=== PATIENT | female | born 1995 | race Caucasian/White ===

== ENCOUNTER 2022-06-28 06:00 | Inpatient (IN) | payer MEDICAID ==
[~2022-06-28 06:00] MED LIST: Acetaminophen 500 MG Tab PO SCH; Amphetamine/Dextroamphetamine Salts 10 MG Tab PO SCH; Celecoxib 200 MG Cap PO SCH; Scopolamine 1.5 MG Transdermal Patch TOP SCH
[2022-06-28] MEDS ORDERED: Dextrose 5%-Lactated Ringers 1,000 ML IV ONE (06:30)
[2022-06-28] MEDS ORDERED: Lactated Ringers 1,000 ML IV SCH (06:30)
[2022-06-28] MEDS ORDERED: fentaNYL 250 MCG/5 ML SDV ONE ×2 (07:10)
[2022-06-28] MEDS ORDERED: Glycopyrrolate 0.2 MG/ML 5 ML MDV ONE (07:10)
[2022-06-28] MEDS ORDERED: Neostigmine Methylsulfate 1 MG/ML 5 ML Syringe ONE (07:10)
[2022-06-28] MEDS ORDERED: Propofol 200 MG/20 ML SDV ONE (07:10)
[2022-06-28] MEDS ORDERED: Rocuronium 50 MG/5 ML Vial ONE ×2 (07:10)
[2022-06-28] MEDS ORDERED: fentaNYL 100 MCG/2 ML SDV ONE (07:10)
[2022-06-28] MEDS ORDERED: Ondansetron 4 MG/2 ML SDV ONE (07:10)
[2022-06-28] MEDS ORDERED: Labetalol 20 MG/4 ML Syringe ONE (07:10)
[2022-06-28] MEDS ORDERED: Succinylcholine 200 MG/10 ML MDV ONE (07:10)
[2022-06-28] MEDS ORDERED: Dexamethasone 4 MG/ML SDV ONE (07:10)
[2022-06-28] MEDS ORDERED: cefOXitin 2 GM Vial ONE (07:10)
[2022-06-28] MEDS ORDERED: Ketamine 18 MG in Sodium Chloride 0.9% 19.82 ML IV SCH (07:15)
[2022-06-28] MEDS ORDERED: Ketamine 500 MG/5 ML MDV IV SCH (07:15)
[2022-06-28] MEDS ORDERED: cefOXitin 2 GM in Sodium Chloride 0.9% 50 ML IV ONE ×3 (07:30→20:35)
[2022-06-28] MEDS ORDERED: cefOXitin 2 GM in Sodium Chloride 0.9% 50 ML IV SCH (07:40)
[2022-06-28] MEDS ORDERED: Lactated Ringers 1,000 ML IV ONE ×2 (09:50→20:30)
[2022-06-28] MEDS ORDERED: Insulin Lispro 100 Unit/ML 3 ML KwikPen SUBCUT SCH (10:00)
[2022-06-28] MEDS ORDERED: hydrOXYzine HCL 100 MG/2 ML SDV IM SCH (10:35)
[2022-06-28] MEDS ORDERED: fentaNYL 50 MCG/ML SDV IVPUSH SCH (10:35)
[2022-06-28] MEDS ORDERED: oxyCODONE 5 MG Tab PO ONE (12:45)
[2022-06-28] MEDS ORDERED: Pantoprazole 40 MG Vial IV ONE (14:00)
[2022-06-28] MEDS ORDERED: MVI, Adult with Vitamin K 10 ML, Thiamine 200 MG, Zinc/Copper/Manganese/Selenium 1 ML i... IV ONE ×4 (14:05)
[2022-06-28] MEDS ORDERED: HYDROmorphone 0.5 MG/0.5 ML Syringe IVPUSH ONE ×2 (15:00→20:15)
[2022-06-28] MEDS ORDERED: Insulin Lispro 100 Unit/ML 3 ML KwikPen SUBCUT ONE (16:00)
[2022-06-28] MEDS ORDERED: Heparin Sodium 5,000 Units/ML Vial SUBCUT ONE (20:30)
[2022-06-28] MEDS ORDERED: traZODone 50 MG Tab PO ONE (20:30)
[2022-06-28] MEDS ORDERED: traMADol 50 MG Tab PO ONE (22:30)
[2022-06-29] MEDS ORDERED: cefOXitin 2 GM in Sodium Chloride 0.9% 50 ML IV ONE (02:05)
[2022-06-29] MEDS ORDERED: Lactated Ringers 1,000 ML IV ONE (03:15)
[2022-06-29] MEDS ORDERED: Iopamidol 612 MG/ML 50 ML SDV PO ONE (03:52)
[2022-06-29] MEDS ORDERED: traMADol 50 MG Tab PO ONE (04:35)
[2022-06-29] MEDS ORDERED: Heparin Sodium 5,000 Units/ML Vial SUBCUT ONE ×2 (08:45→20:00)
[2022-06-29] MEDS ORDERED: Celecoxib 200 MG Cap PO ONE ×2 (08:45→21:00)
[2022-06-29] MEDS ORDERED: oxyCODONE 5 MG Tab PO ONE ×2 (11:45→20:44)
[2022-06-29] MEDS ORDERED: traZODone 50 MG Tab PO ONE (21:00)
[2022-06-30] MEDS ORDERED: Cyanocobalamin (Vitamin B12) 1,000 MCG/ML SDV IM ONE (08:13)
[2022-06-30] MEDS ORDERED: Heparin Sodium 5,000 Units/ML Vial SUBCUT ONE (08:13)
[2022-06-30] MEDS ORDERED: oxyCODONE 5 MG Tab PO ONE (08:13)
[2022-06-30] MEDS ORDERED: Celecoxib 200 MG Cap PO ONE (08:13)
[2022-07-24 23:15] LABS: ESTIMATED GFR 70 mL/min (>60)
[2022-07-24 23:22] LABS: HEMOGLOBIN A1C 10.9 % (4.5-6.2)
== END 2022-06-30 10:50 | disposition home or self-care (01) | DRG 621 ==
LOC: JP.ZCENSUS 06:00
PROVIDERS: ADMIT Surgery; ATTEND Surgery
PROC: 0FB24ZX Excision of Left Lobe Liver, Percutaneous Endoscopic Approach, Diagnostic (ICD-10-PCS; principal; 2022-06-28)
PROC: 0D164ZA Bypass Stomach to Jejunum, Percutaneous Endoscopic Approach (ICD-10-PCS; principal; 2022-06-28)
PROC: 0BQT4ZZ Repair Diaphragm, Percutaneous Endoscopic Approach (ICD-10-PCS; principal; 2022-06-28)
DX: E66.01 Morbid (severe) obesity due to excess calories (principal); F33.41 Major depressive disorder, recurrent, in partial remission; F41.9 Anxiety disorder, unspecified; K44.9 Diaphragmatic hernia without obstruction or gangrene; F90.9 Attention-deficit hyperactivity disorder, unspecified type; R16.0 Hepatomegaly, not elsewhere classified; E11.9 Type 2 diabetes mellitus without complications; Z68.38 Body mass index [BMI] 38.0-38.9, adult; Z90.49 Acquired absence of other specified parts of digestive tract; Z90.89 Acquired absence of other organs; Z98.890 Other specified postprocedural states; Z88.0 Allergy status to penicillin; Z79.4 Long term (current) use of insulin
CPT/HCPCS: 36415; 74240; 74240-26; 80053; 81025; 82728; 82947; 83036; 83735; 84100; 85027; 86850; 86900; 86901; 88307; 88313; 94762; A9270-GY; C9113; J0171; J0330; J0694; J1100; J1170; J1644; J1815; J1815-GY; J2405; J2704; J2710; J2795; J3010; J3410; J3411; J3420; J3490; J7120; J7121; Q9967

== ENCOUNTER 2022-08-16 08:59 | Day surgery (SDC) | payer MEDICAID ==
[~2022-08-16 08:59] MED LIST changes: -Acetaminophen 500 MG Tab PO SCH; -Amphetamine/Dextroamphetamine Salts 10 MG Tab PO SCH; -Celecoxib 200 MG Cap PO SCH; +Midazolam 1 MG/ML 2 ML SDV ONE; +Propofol 200 MG/20 ML SDV ONE; -Scopolamine 1.5 MG Transdermal Patch TOP SCH; +fentaNYL 50 MCG/ML SDV ONE
[2022-08-16] MEDS ORDERED: Lactated Ringers 1,000 ML IV SCH (09:15)
[2022-08-16] MEDS ORDERED: Cyanocobalamin (Vitamin B12) 1,000 MCG/ML SDV IM ONE (09:30)
[2022-08-16] MEDS ORDERED: Dexamethasone 4 MG/ML SDV ONE (09:59)
[2022-08-16] MEDS ORDERED: Glycopyrrolate 0.2 MG/ML 2 ML SDV IVPUSH ONE (10:00)
[2022-08-16] MEDS ORDERED: MVI, Adult with Vitamin K 10 ML, Thiamine 200 MG, Zinc/Copper/Manganese/Selenium 1 ML i... IV ONE ×4 (10:15)
[2022-08-16] MEDS ORDERED: Ondansetron 4 MG/2 ML SDV IVPUSH ONE (11:45)
[2022-08-16] MEDS ORDERED: Scopolamine 1.5 MG Transdermal Patch TOP ONE (12:43)
[2022-08-16] MEDS ORDERED: Hyoscyamine 0.125 MG Tab.SL SL ONE ×2 (13:15→15:18)
[2022-08-16] MEDS ORDERED: Ondansetron 4 MG Tab.DIS PO ONE (15:19)
== END 2022-08-16 15:40 | disposition home or self-care (01) ==
LOC: JP.SDS 08:59
PROVIDERS: ATTEND Surgery
DX: K94.23 Gastrostomy malfunction (principal); E66.9 Obesity, unspecified; E11.9 Type 2 diabetes mellitus without complications; N20.0 Calculus of kidney; F90.9 Attention-deficit hyperactivity disorder, unspecified type; Z68.33 Body mass index [BMI] 33.0-33.9, adult; Z79.899 Other long term (current) drug therapy; Z88.0 Allergy status to penicillin
CPT/HCPCS: 43245; 74176; 76000; 81003; 81025; A9270; C1726; J1100; J2250; J2405; J2704; J3010; J3411; J3420; J3490; J7120; Q0162

== ENCOUNTER 2022-09-23 07:23 | Day surgery (SDC) | payer MEDICAID ==
[~2022-09-23 07:23] MED LIST changes: +fentaNYL 100 MCG/2 ML SDV ONE; -fentaNYL 50 MCG/ML SDV ONE
[2022-09-23] MEDS ORDERED: Lactated Ringers 1,000 ML IV ONE (08:00)
[2022-09-23] MEDS ORDERED: Scopolamine 1.5 MG Transdermal Patch TRDERM ONE (08:07)
[2022-09-23] MEDS ORDERED: Cyanocobalamin (Vitamin B12) 1,000 MCG/ML SDV IM ONE (09:00)
[2022-09-23] MEDS ORDERED: MVI, Adult with Vitamin K 10 ML, Thiamine 200 MG, Zinc/Copper/Manganese/Selenium 1 ML i... IV ONE ×4 (09:00)
[2022-09-23] MEDS ORDERED: Glycopyrrolate 0.2 MG/ML 2 ML SDV IVPUSH ONE (09:15)
[2022-09-23] MEDS ORDERED: Dexamethasone 4 MG/ML SDV ONE (09:39)
== END 2022-09-23 11:18 | disposition home or self-care (01) ==
LOC: JP.SDS 07:23
PROVIDERS: ATTEND Surgery
DX: K94.23 Gastrostomy malfunction (principal); K21.9 Gastro-esophageal reflux disease without esophagitis; E66.9 Obesity, unspecified; E11.9 Type 2 diabetes mellitus without complications; F90.9 Attention-deficit hyperactivity disorder, unspecified type; Z68.29 Body mass index [BMI] 29.0-29.9, adult; Z79.899 Other long term (current) drug therapy; Z88.0 Allergy status to penicillin; Z88.8 Allergy status to other drugs, medicaments and biological substances
CPT/HCPCS: 43249; 81025; A9270; C1726; J1100; J2250; J2704; J3010; J3411; J3420; J3490; J7120

== ENCOUNTER 2022-11-04 07:58 | Day surgery (SDC) | payer MEDICAID ==
[2022-11-04] MEDS ORDERED: Glycopyrrolate 0.2 MG/ML 2 ML SDV IVPUSH ONE (08:00)
[2022-11-04] MEDS ORDERED: Cyanocobalamin (Vitamin B12) 1,000 MCG/ML SDV IM ONE (08:00)
[2022-11-04] MEDS ORDERED: Lactated Ringers 1,000 ML IV ONE (09:00)
[2022-11-04] MEDS ORDERED: Midazolam 1 MG/ML 2 ML SDV ONE (09:08)
[2022-11-04] MEDS ORDERED: Propofol 200 MG/20 ML SDV ONE (09:08)
[2022-11-04] MEDS ORDERED: fentaNYL 50 MCG/ML SDV ONE (09:08)
[2022-11-04] MEDS ORDERED: Ondansetron 4 MG/2 ML SDV ONE (09:59)
[2022-11-04] MEDS ORDERED: Dexamethasone 4 MG/ML SDV ONE (09:59)
[2022-11-04] MEDS ORDERED: MVI, Adult with Vitamin K 10 ML, Thiamine 200 MG, Zinc/Copper/Manganese/Selenium 1 ML i... IV ONE ×4 (10:00)
[2022-11-04] MEDS ORDERED: Ondansetron 4 MG/2 ML SDV IVPUSH PRN (10:32)
[2022-11-04] MEDS ORDERED: Scopolamine 1.5 MG Transdermal Patch TOP ONE (10:32)
[2022-11-04] MEDS ORDERED: Metoclopramide 10 MG/2 ML SDV IVPUSH ONE (12:15)
[2022-11-04] MEDS ORDERED: HYDROmorphone 1 MG/ML Syringe IVPUSH PRN (12:15)
== END 2022-11-04 12:59 | disposition home or self-care (01) ==
LOC: JP.SDS 07:58
PROVIDERS: ATTEND Surgery
DX: K94.23 Gastrostomy malfunction (principal); F41.9 Anxiety disorder, unspecified; F90.9 Attention-deficit hyperactivity disorder, unspecified type; E11.9 Type 2 diabetes mellitus without complications; Z79.899 Other long term (current) drug therapy; Z98.890 Other specified postprocedural states; Z88.0 Allergy status to penicillin; Z88.8 Allergy status to other drugs, medicaments and biological substances
CPT/HCPCS: 81025; A9270-GY; C1726; J1100; J2250; J2405; J2704; J2765; J3010; J3411; J3420; J3490; J7120

== ENCOUNTER 2023-01-05 07:15 | Day surgery (SDC) | payer MEDICAID ==
[2023-01-05] MEDS ORDERED: Glycopyrrolate 0.2 MG/ML 2 ML SDV IVPUSH ONE (08:30)
[2023-01-05] MEDS ORDERED: Lactated Ringers 1,000 ML IV SCH (08:30)
[2023-01-05] MEDS ORDERED: Cyanocobalamin (Vitamin B12) 1,000 MCG/ML SDV IM ONE (08:30)
[2023-01-05] MEDS ORDERED: Scopolamine 1.5 MG Transdermal Patch TRDERM ONE (08:53)
[2023-01-05] MEDS ORDERED: MVI, Adult with Vitamin K 10 ML, Thiamine 200 MG, Chromium/Copper/Mang/Selen/Zn 1 ML in... IV SCH ×4 (09:30)
[2023-01-05] MEDS ORDERED: Midazolam 1 MG/ML 2 ML SDV ONE (09:39)
[2023-01-05] MEDS ORDERED: Propofol 200 MG/20 ML SDV ONE (09:39)
[2023-01-05] MEDS ORDERED: fentaNYL 100 MCG/2 ML SDV ONE (09:39)
[2023-01-05] MEDS ORDERED: Dexamethasone 4 MG/ML SDV ONE (10:42)
== END 2023-01-05 12:25 | disposition home or self-care (01) ==
LOC: JP.SDS 07:15
PROVIDERS: ATTEND Surgery
DX: K94.23 Gastrostomy malfunction (principal); R13.10 Dysphagia, unspecified; F98.8 Other specified behavioral and emotional disorders with onset usually occurring in childhood and adolescence; F41.9 Anxiety disorder, unspecified; F32.A Depression, unspecified; E11.9 Type 2 diabetes mellitus without complications; Z79.899 Other long term (current) drug therapy; Z88.0 Allergy status to penicillin; Z88.8 Allergy status to other drugs, medicaments and biological substances
CPT/HCPCS: 43249; 81025; A9270; C1726; J1100; J2250; J2704; J3010; J3411; J3420; J3490; J7120

== ENCOUNTER 2023-02-17 08:25 | Day surgery (SDC) | payer MEDICAID ==
[2023-02-17] MEDS ORDERED: Cyanocobalamin (Vitamin B12) 1,000 MCG/ML SDV IM ONE (08:30)
[2023-02-17] MEDS ORDERED: Midazolam 1 MG/ML 2 ML SDV ONE (09:22)
[2023-02-17] MEDS ORDERED: fentaNYL 50 MCG/ML SDV ONE (09:22)
[2023-02-17] MEDS ORDERED: Propofol 200 MG/20 ML SDV ONE ×2 (09:22→10:24)
[2023-02-17] MEDS ORDERED: Lactated Ringers 1,000 ML IV SCH (09:30)
[2023-02-17] MEDS: Glycopyrrolate 0.2 MG/ML 2 ML SDV IVPUSH ONE ×2 (10:10→14:29)
[2023-02-17] MEDS ORDERED: Dexamethasone 4 MG/ML SDV ONE (10:23)
[2023-02-17] MEDS ORDERED: droPERidol 5 MG/2 ML SDV ONE (10:27)
[2023-02-17] MEDS ORDERED: Ondansetron 4 MG/2 ML SDV ONE (10:27)
[2023-02-17] MEDS ORDERED: Scopolamine 1.5 MG Transdermal Patch ONE (10:49)
[2023-02-17] MEDS ORDERED: MVI, Adult with Vitamin K 10 ML, Thiamine 200 MG, Zinc/Copper/Manganese/Selenium 1 ML i... IV ONE ×4 (11:30)
[2023-02-17] MEDS ORDERED: hydrOXYzine HCl 50 MG/ML SDV IM ONE (11:30)
[2023-02-17] MEDS ORDERED: fentaNYL 50 MCG/ML SDV IVPUSH ONE (11:30)
[2023-02-17] MEDS ORDERED: Ondansetron 4 MG/2 ML SDV IVPUSH ONE (11:30)
[2023-02-17] MEDS ORDERED: Metoclopramide 10 MG/2 ML SDV IVPUSH ONE (11:45)
[2023-02-17] MEDS ORDERED: diphenhydrAMINE 25 MG Cap PO PRN (12:22)
[2023-02-17] MEDS ORDERED: diphenhydrAMINE 50 MG/ML SDV IVPUSH PRN (12:22)
[2023-02-17] MEDS ORDERED: Naloxone 0.4 MG/ML SDV IVPUSH PRN (12:22)
[2023-02-17] MEDS ORDERED: Ondansetron 4 MG/2 ML SDV IVPUSH PRN (12:22)
[2023-02-17] MEDS ORDERED: LORazepam 2 MG/ML SDV IVPUSH PRN (12:33)
[2023-02-17] MEDS ORDERED: Cyclobenzaprine 10 MG Tab PO PRN (12:34)
[2023-02-17] MEDS ORDERED: oxyCODONE 5 MG Tab PO PRN (12:36)
[2023-02-17] MEDS: HYDROmorphone/Normal Saline 6 MG/30 ML PCA Vial IV PRN (12:40)
[2023-02-17] MEDS: Pantoprazole 40 MG Vial IV SCH (14:16)
[2023-02-17] MEDS: SCOPOLAMINE PATCH CHECK TOP SCH (14:29)
[2023-02-17] MEDS: Dextrose 5%-Lactated Ringers 1,000 ML IV SCH (16:20)
[2023-02-17] MEDS: Meropenem 500 MG in Sodium Chloride 0.9% 50 ML IV SCH ×3 (16:22→20:14)
[2023-02-17] MEDS: Ondansetron 4 MG/2 ML SDV IVPUSH SCH ×3 (16:45→23:48)
[2023-02-17] MEDS: Metoclopramide 10 MG/2 ML SDV IVPUSH SCH ×2 (18:06→23:48)
[2023-02-17] MEDS: diphenhydrAMINE 50 MG/ML SDV IVPUSH PRN (21:00)
[2023-02-17] MEDS: traZODone 50 MG Tab PO SCH (22:03)
[2023-02-18] MEDS: Meropenem 500 MG in Sodium Chloride 0.9% 50 ML IV SCH ×3 (02:06→15:48)
[2023-02-18] MEDS: HYDROmorphone/Normal Saline 6 MG/30 ML PCA Vial IV PRN (03:38)
[2023-02-18] MEDS: Ondansetron 4 MG/2 ML SDV IVPUSH SCH ×2 (03:39→08:08)
[2023-02-18] MEDS: Dextrose 5%-Lactated Ringers 1,000 ML IV SCH (03:40)
[2023-02-18 04:58] LABS: BASOPHILS ABSOLUTE AUTO 0.03 K/uL (0.00-0.10); BASOPHILS PERCENT AUTO 0.3 % (0.1-1.3); EOSINOPHILS PERCENT AUTO 0.1 % (0.0-5.4); HEMATOCRIT 28.7 % (34.3-46.0); HEMOGLOBIN 8.8 g/dL (11.2-15.5); IMMATURE GRAN ABSOLUTE AUTO 0.05 K/uL (0.00-0.23); IMMATURE GRAN PERCENT AUTO 0.5 % (0.0-0.7); LYMPHOCYTES ABSOLUTE AUTO 2.05 K/uL (0.8-3.3); LYMPHOCYTES PERCENT AUTO 18.5 % (11.4-47.7); MEAN CORPUSCULAR HEMOGLOBIN 22.9 pg (31.6-35.5); MEAN CORPUSCULAR HGB CONC 30.7 g/dL (31.6-35.5); MEAN CORPUSCULAR VOLUME 74.7 fL (81.4-99.0); MONOCYTES ABSOLUTE AUTO 1.11 K/uL (0.20-0.90); NEUTROPHILS ABSOLUTE AUTO 7.86 K/uL (1.0-7.6); NEUTROPHILS PERCENT AUTO 70.6 % (40.0-78.1); PLATELET COUNT,PLT 379 K/uL (130-375); RED BLOOD CELL COUNT 3.84 M/uL (3.77-5.24); WHITE BLOOD CELL COUNT,WBC 11.1 K/uL (3.2-11.0)
[2023-02-18 05:08] LABS: EOSINOPHILS ABSOLUTE AUTO 0.01 K/uL (0.00-0.40)
[2023-02-18 05:39] LABS: A/G RATIO 0.8 (1.2-2.2); ALANINE AMINOTRANSFERASE,ALT 24 U/L (12-78); ALBUMIN 2.8 g/dL (3.4-5.0); ALKALINE PHOSPHATASE 57 U/L (46-116); BILIRUBIN TOTAL 0.4 mg/dL (0.2-1.0); BLOOD UREA NITROGEN,BUN 7 mg/dL (7-18); CALCIUM 8.4 mg/dL (8.5-10.1); CARBON DIOXIDE,CO2 29 mmol/L (21-32); CHLORIDE,CL 103 mmol/L (100-108); CREATININE 0.9 mg/dL (0.6-1.0); EST CRCL DRUG DOSING (CG) 86.34 mL/min; ESTIMATED GFR 89 mL/min (>60); FERRITIN 6 ng/ml (8-388); GLUCOSE RANDOM 110 mg/dL (74-106); MAGNESIUM 1.8 mg/dL (1.8-2.4); PHOSPHORUS 3.5 mg/dL (2.5-4.9); POTASSIUM,K 3.8 mmol/L (3.6-5.2); PROTEIN TOTAL,TP 6.3 g/dL (6.4-8.2); SODIUM,NA 138 mmol/L (140-148)
[2023-02-18 05:40] LABS: ANION GAP 9.8 mmol/L (5.0-14.0)
[2023-02-18 05:41] LABS: ASPARTATE AMNIOTRANSFERASE,AST 39 U/L (15-37)
[2023-02-18] MEDS: Metoclopramide 10 MG/2 ML SDV IVPUSH SCH (05:58)
[2023-02-18] MEDS: Amphetamine/Dextroamphetamine Salts 10 MG Cap.ER PO SCH (08:05)
[2023-02-18] MEDS: SCOPOLAMINE PATCH CHECK TOP SCH (08:09)
[2023-02-18] MEDS: Tamsulosin 0.4 MG Cap.ER PO SCH (08:09)
[2023-02-18] MEDS: diphenhydrAMINE 50 MG/ML SDV IVPUSH PRN ×2 (08:18→15:54)
[2023-02-18] MEDS ORDERED: LORazepam 1 MG Tab PO PRN (09:32)
[2023-02-18] MEDS: HYDROmorphone 2 MG Tab PO PRN ×4 (10:22→22:21)
[2023-02-18] MEDS: Sodium Ferric Gluconate Cmplex 250 MG in Sodium Chloride 0.9% 100 ML IV SCH (10:49)
[2023-02-18] MEDS: Metoclopramide 10 MG Tab PO SCH ×3 (10:49→22:20)
[2023-02-18] MEDS: Amphetamine/Dextroamphetamine Salts 10 MG Tab PO SCH (11:58)
[2023-02-18] MEDS: Pantoprazole 40 MG Vial IV SCH (13:09)
[2023-02-18] MEDS: Ondansetron 4 MG Tab.DIS PO PRN (20:29)
[2023-02-18] MEDS: traZODone 50 MG Tab PO SCH (20:29)
[2023-02-18] MEDS: diphenhydrAMINE 25 MG Cap PO PRN (22:21)
[2023-02-19] MEDS: HYDROmorphone 2 MG Tab PO PRN ×3 (02:08→10:09)
[2023-02-19] MEDS: Ondansetron 4 MG Tab.DIS PO PRN (02:11)
[2023-02-19] MEDS: Metoclopramide 10 MG Tab PO SCH ×2 (03:58→10:01)
[2023-02-19 04:32] LABS: BASOPHILS ABSOLUTE AUTO 0.04 K/uL (0.00-0.10); BASOPHILS PERCENT AUTO 0.5 % (0.1-1.3); EOSINOPHILS PERCENT AUTO 0.2 % (0.0-5.4); HEMATOCRIT 29.7 % (34.3-46.0); HEMOGLOBIN 8.9 g/dL (11.2-15.5); IMMATURE GRAN ABSOLUTE AUTO 0.03 K/uL (0.00-0.23); IMMATURE GRAN PERCENT AUTO 0.3 % (0.0-0.7); LYMPHOCYTES ABSOLUTE AUTO 1.92 K/uL (0.8-3.3); LYMPHOCYTES PERCENT AUTO 21.6 % (11.4-47.7); MEAN CORPUSCULAR HEMOGLOBIN 22.4 pg (31.6-35.5); MEAN CORPUSCULAR VOLUME 74.8 fL (81.4-99.0); MONOCYTES ABSOLUTE AUTO 1.19 K/uL (0.20-0.90); MONOCYTES PERCENT AUTO 13.4 % (3.3-12.6); NEUTROPHILS ABSOLUTE AUTO 5.68 K/uL (1.0-7.6); PLATELET COUNT,PLT 324 K/uL (130-375); RED BLOOD CELL COUNT 3.97 M/uL (3.77-5.24); WHITE BLOOD CELL COUNT,WBC 8.9 K/uL (3.2-11.0)
[2023-02-19 05:00] LABS: A/G RATIO 0.9 (1.2-2.2); ALANINE AMINOTRANSFERASE,ALT 19 U/L (12-78); ALKALINE PHOSPHATASE 63 U/L (46-116); ASPARTATE AMNIOTRANSFERASE,AST 15 U/L (15-37); BILIRUBIN TOTAL 0.3 mg/dL (0.2-1.0); BLOOD UREA NITROGEN,BUN 6 mg/dL (7-18); CALCIUM 8.6 mg/dL (8.5-10.1); CARBON DIOXIDE,CO2 31 mmol/L (21-32); CHLORIDE,CL 103 mmol/L (100-108); CREATININE 0.9 mg/dL (0.6-1.0); EST CRCL DRUG DOSING (CG) 86.34 mL/min; ESTIMATED GFR 89 mL/min (>60); GLUCOSE RANDOM 80 mg/dL (74-106); MAGNESIUM 1.9 mg/dL (1.8-2.4); POTASSIUM,K 3.3 mmol/L (3.6-5.2); PROTEIN TOTAL,TP 6.3 g/dL (6.4-8.2); SODIUM,NA 139 mmol/L (140-148)
[2023-02-19 05:19] LABS: EOSINOPHILS ABSOLUTE AUTO 0.02 K/uL (0.00-0.40)
[2023-02-19 05:20] LABS: ANION GAP 8.3 mmol/L (5.0-14.0)
[2023-02-19] MEDS: Amphetamine/Dextroamphetamine Salts 10 MG Cap.ER PO SCH (09:43)
[2023-02-19] MEDS: Tamsulosin 0.4 MG Cap.ER PO SCH (09:52)
[2023-02-19] MEDS: Sodium Ferric Gluconate Cmplex 250 MG in Sodium Chloride 0.9% 100 ML IV SCH (10:01)
[2023-02-19] MEDS: diphenhydrAMINE 25 MG Cap PO PRN (10:09)
[2023-02-19] MEDS: SCOPOLAMINE PATCH CHECK TOP SCH (10:11)
[2023-02-19] MEDS: Amphetamine/Dextroamphetamine Salts 10 MG Tab PO SCH (12:20)
== END 2023-02-19 14:45 ==
LOC: JP.SDS 08:25 → JP.2SS 12:28 → JP.SDS 02-19 14:45
PROVIDERS: ATTEND Surgery
DX: K94.23 Gastrostomy malfunction (principal); R13.10 Dysphagia, unspecified; E11.9 Type 2 diabetes mellitus without complications; E61.1 Iron deficiency; E66.9 Obesity, unspecified; F41.9 Anxiety disorder, unspecified; F98.8 Other specified behavioral and emotional disorders with onset usually occurring in childhood and adolescence; F33.41 Major depressive disorder, recurrent, in partial remission; Z68.24 Body mass index [BMI] 24.0-24.9, adult; Z79.899 Other long term (current) drug therapy; Z95.1 Presence of aortocoronary bypass graft; Z98.84 Bariatric surgery status; Z88.0 Allergy status to penicillin; Z88.8 Allergy status to other drugs, medicaments and biological substances
CPT/HCPCS: 36415; 43266; 80053; 81025; 82728; 83735; 84100; 85025; 86850; 86900; 86901; 86920; 86922; 87635; A9270; C1726; C1874; C9113; J1100; J1170; J1200; J1790; J2060; J2185; J2250; J2405; J2704; J2765; J2916; J3010; J3410; J3411; J3420; J3490; J7120; J7121; Q0162; U0002

== ENCOUNTER 2023-03-24 06:56 | Inpatient (IN) | payer MEDICAID ==
[~2023-03-24 06:56] MED LIST changes: -Midazolam 1 MG/ML 2 ML SDV ONE; -Propofol 200 MG/20 ML SDV ONE
[2023-03-24 07:13] LABS: HEMATOCRIT 38.1 % (34.3-46.0); HEMOGLOBIN 11.8 g/dL (11.2-15.5); MEAN CORPUSCULAR HEMOGLOBIN 23.9 pg (31.6-35.5); MEAN CORPUSCULAR VOLUME 77.1 fL (81.4-99.0); RED BLOOD CELL COUNT 4.94 M/uL (3.77-5.24); WHITE BLOOD CELL COUNT,WBC 8.1 K/uL (3.2-11.0)
[2023-03-24 07:44] LABS: A/G RATIO 0.8 (1.2-2.2); ALANINE AMINOTRANSFERASE,ALT 25 U/L (12-78); ALBUMIN 3.1 g/dL (3.4-5.0); ALKALINE PHOSPHATASE 77 U/L (46-116); ASPARTATE AMNIOTRANSFERASE,AST 24 U/L (15-37); BILIRUBIN TOTAL 0.4 mg/dL (0.2-1.0); BLOOD UREA NITROGEN,BUN 10 mg/dL (7-18); CALCIUM 8.7 mg/dL (8.5-10.1); CARBON DIOXIDE,CO2 28 mmol/L (21-32); CHLORIDE,CL 105 mmol/L (100-108); CREATININE 0.8 mg/dL (0.6-1.0); EST CRCL DRUG DOSING (CG) 97.13 mL/min; ESTIMATED GFR 102 mL/min (>60); FERRITIN 36 ng/ml (8-388); GLUCOSE RANDOM 86 mg/dL (74-106); PHOSPHORUS 3.3 mg/dL (2.5-4.9); POTASSIUM,K 3.2 mmol/L (3.6-5.2); PROTEIN TOTAL,TP 6.9 g/dL (6.4-8.2); SODIUM,NA 141 mmol/L (140-148)
[2023-03-24] MEDS ORDERED: Dextrose 5%-Lactated Ringers 1,000 ML IV SCH (07:45)
[2023-03-24 07:47] LABS: ANION GAP 11.2 mmol/L (5.0-14.0)
[2023-03-24] MEDS ORDERED: Glycopyrrolate 0.2 MG/ML 2 ML SDV IVPUSH ONE (08:45)
[2023-03-24] MEDS ORDERED: fentaNYL 100 MCG/2 ML SDV ONE ×2 (09:23→10:30)
[2023-03-24] MEDS ORDERED: Labetalol 20 MG/4 ML Syringe ONE (09:37)
[2023-03-24] MEDS ORDERED: Sodium Chloride 0.9% 10 ML ONE ×2 (09:40→10:05)
[2023-03-24] MEDS ORDERED: Ondansetron 4 MG/2 ML SDV IVPUSH PRN ×2 (10:28→14:30)
[2023-03-24] MEDS ORDERED: diphenhydrAMINE 50 MG/ML SDV IVPUSH PRN (10:28)
[2023-03-24] MEDS ORDERED: diphenhydrAMINE 25 MG Cap PO PRN (10:28)
[2023-03-24] MEDS ORDERED: Naloxone 0.4 MG/ML SDV IVPUSH PRN (10:28)
[2023-03-24] MEDS ORDERED: Ropivacaine 32 ML, dexAMETHasone 8 MG, EPINEPHrine 0.4 MG, Sodium Chloride 0.9% 45.6 ML NERVRT SCH ×4 (10:30)
[2023-03-24] MEDS ORDERED: Ketamine 17 MG in Sodium Chloride 0.9% 19.83 ML IV SCH (10:30)
[2023-03-24] MEDS ORDERED: Midazolam 1 MG/ML 2 ML SDV ONE (10:30)
[2023-03-24] MEDS ORDERED: Ketamine 500 MG/5 ML MDV IV SCH (10:30)
[2023-03-24] MEDS ORDERED: Propofol 200 MG/20 ML SDV ONE (10:30)
[2023-03-24] MEDS ORDERED: Lidocaine 1% with EPINEPHrine 1:100,000 20 ML MDV INJECT ONE (10:35)
[2023-03-24] MEDS ORDERED: Linezolid 600 MG/300 ML Premix Bag IRR ONE (10:35)
[2023-03-24] MEDS ORDERED: Linezolid 600 MG/300 ML Premix Bag IV ONE (10:35)
[2023-03-24] MEDS ORDERED: Bupivacaine 0.5% 50 ML MDV INJECT ONE (10:35)
[2023-03-24] MEDS ORDERED: Meropenem 500 MG SDV IRR ONE (10:36)
[2023-03-24] MEDS ORDERED: Naloxone 0.4 MG/ML SDV IV PRN (11:00)
[2023-03-24] MEDS: HYDROmorphone/Normal Saline 6 MG/30 ML PCA Vial IV PRN ×2 (11:10→16:41)
[2023-03-24] MEDS ORDERED: Rocuronium 50 MG/5 ML Vial ONE (11:11)
[2023-03-24] MEDS ORDERED: Sugammadex Sodium 200 MG/2 ML VIAL ONE (11:49)
[2023-03-24] MEDS ORDERED: Scopolamine 1.5 MG Transdermal Patch ONE (11:59)
[2023-03-24] MEDS ORDERED: hydrOXYzine HCL 100 MG/2 ML SDV IM ONE (12:26)
[2023-03-24] MEDS ORDERED: Albuterol/Ipratropium 3.0-0.5 MG/3 ML Neb Soln INH PRN (14:21)
[2023-03-24] MEDS ORDERED: hydrOXYzine HCL 100 MG/2 ML SDV IM PRN (14:30)
[2023-03-24] MEDS ORDERED: Metoclopramide 10 MG/2 ML SDV IVPUSH PRN (14:30)
[2023-03-24] MEDS ORDERED: Benzocaine/Cetylpyridinium/Menthol Lozenge MUCMEM PRN (14:30)
[2023-03-24] MEDS ORDERED: Labetalol 20 MG/4 ML Syringe IVPUSH PRN (14:30)
[2023-03-24] MEDS ORDERED: Acetaminophen 500 MG Tab PO PRN (14:30)
[2023-03-24] MEDS ORDERED: LORazepam 1 MG Tab PO PRN (14:31)
[2023-03-24] MEDS: Pantoprazole 40 MG Vial IVPUSH SCH (15:27)
[2023-03-24] MEDS: Meropenem 500 MG in Sodium Chloride 0.9% 100 ML IV SCH ×3 (15:41→22:37)
[2023-03-24] MEDS ORDERED: MVI, Adult with Vitamin K 10 ML, Thiamine 200 MG, Zinc/Copper/Manganese/Selenium 1 ML i... IV SCH ×4 (16:00)
[2023-03-24] MEDS: Acetaminophen 500 MG Tab PO SCH (17:26)
[2023-03-24] MEDS: Heparin Sodium 5,000 Units/ML Vial SUBCUT SCH (21:30)
[2023-03-24] MEDS: traZODone 50 MG Tab PO SCH (21:32)
[2023-03-24] MEDS: hydrOXYzine HCL 100 MG/2 ML SDV IM PRN (22:29)
[2023-03-24] MEDS: Dextrose 5%-Lactated Ringers 1,000 ML IV SCH (22:38)
[2023-03-25] MEDS: Acetaminophen 500 MG Tab PO SCH ×3 (02:54→18:12)
[2023-03-25] MEDS ORDERED: Iopamidol 612 MG/ML 30 ML SDV PO STA (03:42)
[2023-03-25] MEDS: HYDROmorphone/Normal Saline 6 MG/30 ML PCA Vial IV PRN ×3 (03:45→21:20)
[2023-03-25] MEDS: diphenhydrAMINE 50 MG/ML SDV IVPUSH PRN ×2 (04:33→21:31)
[2023-03-25 04:34] LABS: BASOPHILS PERCENT AUTO 0.1 % (0.1-1.3); HEMATOCRIT 39.2 % (34.3-46.0); IMMATURE GRAN ABSOLUTE AUTO 0.08 K/uL (0.00-0.23); IMMATURE GRAN PERCENT AUTO 0.4 % (0.0-0.7); LYMPHOCYTES ABSOLUTE AUTO 0.85 K/uL (0.8-3.3); LYMPHOCYTES PERCENT AUTO 4.4 % (11.4-47.7); MEAN CORPUSCULAR HEMOGLOBIN 23.7 pg (31.6-35.5); MEAN CORPUSCULAR HGB CONC 30.6 g/dL (31.6-35.5); MEAN CORPUSCULAR VOLUME 77.3 fL (81.4-99.0); MONOCYTES ABSOLUTE AUTO 1.28 K/uL (0.20-0.90); MONOCYTES PERCENT AUTO 6.6 % (3.3-12.6); NEUTROPHILS ABSOLUTE AUTO 17.13 K/uL (1.0-7.6); NEUTROPHILS PERCENT AUTO 88.5 % (40.0-78.1); PLATELET COUNT,PLT 355 K/uL (130-375); RED BLOOD CELL COUNT 5.07 M/uL (3.77-5.24); WHITE BLOOD CELL COUNT,WBC 19.4 K/uL (3.2-11.0)
[2023-03-25] MEDS: Meropenem 500 MG in Sodium Chloride 0.9% 100 ML IV SCH ×5 (04:40→21:08)
[2023-03-25 04:58] LABS: BASOPHILS ABSOLUTE AUTO 0.02 K/uL (0.00-0.10)
[2023-03-25 05:18] LABS: A/G RATIO 0.7 (1.2-2.2); ALANINE AMINOTRANSFERASE,ALT 28 U/L (12-78); ALBUMIN 2.7 g/dL (3.4-5.0); ALKALINE PHOSPHATASE 61 U/L (46-116); ASPARTATE AMNIOTRANSFERASE,AST 63 U/L (15-37); BILIRUBIN TOTAL 0.4 mg/dL (0.2-1.0); BLOOD UREA NITROGEN,BUN 9 mg/dL (7-18); CALCIUM 8.3 mg/dL (8.5-10.1); CARBON DIOXIDE,CO2 28 mmol/L (21-32); CHLORIDE,CL 104 mmol/L (100-108); CREATININE 0.8 mg/dL (0.6-1.0); EST CRCL DRUG DOSING (CG) 97.13 mL/min; ESTIMATED GFR 102 mL/min (>60); GLUCOSE RANDOM 149 mg/dL (74-106); MAGNESIUM 1.7 mg/dL (1.8-2.4); PHOSPHORUS 2.7 mg/dL (2.5-4.9); PRO B-TYPE NATRIUR PEPT,BNPPRO 83 pg/mL (5-125); PROTEIN TOTAL,TP 6.5 g/dL (6.4-8.2); SODIUM,NA 137 mmol/L (140-148)
[2023-03-25 05:24] LABS: ANION GAP 8.5 mmol/L (5.0-14.0); POTASSIUM,K 3.5 mmol/L (3.6-5.2)
[2023-03-25] MEDS: Dextrose 5%-Lactated Ringers 1,000 ML IV SCH (05:30)
[2023-03-25] MEDS: Amphetamine/Dextroamphetamine Salts 10 MG Cap.ER PO SCH (08:09)
[2023-03-25] MEDS: Heparin Sodium 5,000 Units/ML Vial SUBCUT SCH ×2 (08:11→20:42)
[2023-03-25] MEDS: hydrOXYzine HCL 100 MG/2 ML SDV IM PRN (08:18)
[2023-03-25] MEDS: Magnesium Sulfate/Water 2 GM in Premix Bag 1 BAG IV SCH ×3 (08:32→21:30)
[2023-03-25] MEDS: Celecoxib 200 MG Cap PO SCH ×2 (09:49→20:41)
[2023-03-25] MEDS: SCOPOLAMINE PATCH CHECK TOP SCH (09:50)
[2023-03-25] MEDS: Potassium Phos in 0.9 % NaCl 15 MMOL in Premix Bag 1 BAG IV SCH ×8 (11:12→20:45)
[2023-03-25] MEDS: Amphetamine/Dextroamphetamine Salts 10 MG Tab PO SCH (11:46)
[2023-03-25] MEDS ORDERED: MVI, Adult with Vitamin K 10 ML, Thiamine 200 MG, Zinc/Copper/Manganese/Selenium 1 ML i... IV SCH ×4 (16:00)
[2023-03-25] MEDS: Pantoprazole 40 MG Vial IVPUSH SCH (16:43)
[2023-03-25] MEDS: traZODone 50 MG Tab PO SCH (20:41)
[2023-03-26] MEDS: Magnesium Sulfate/Water 2 GM in Premix Bag 1 BAG IV SCH ×4 (02:11→19:32)
[2023-03-26] MEDS: Acetaminophen 500 MG Tab PO SCH ×3 (02:11→17:04)
[2023-03-26 04:08] LABS: BASOPHILS ABSOLUTE AUTO 0.04 K/uL (0.00-0.10); BASOPHILS PERCENT AUTO 0.3 % (0.1-1.3); EOSINOPHILS ABSOLUTE AUTO 0.07 K/uL (0.00-0.40); EOSINOPHILS PERCENT AUTO 0.5 % (0.0-5.4); HEMATOCRIT 32.7 % (34.3-46.0); HEMOGLOBIN 10.1 g/dL (11.2-15.5); IMMATURE GRAN ABSOLUTE AUTO 0.04 K/uL (0.00-0.23); IMMATURE GRAN PERCENT AUTO 0.3 % (0.0-0.7); LYMPHOCYTES ABSOLUTE AUTO 1.09 K/uL (0.8-3.3); LYMPHOCYTES PERCENT AUTO 8.6 % (11.4-47.7); MEAN CORPUSCULAR HEMOGLOBIN 23.9 pg (31.6-35.5); MEAN CORPUSCULAR HGB CONC 30.9 g/dL (31.6-35.5); MEAN CORPUSCULAR VOLUME 77.3 fL (81.4-99.0); MONOCYTES ABSOLUTE AUTO 0.83 K/uL (0.20-0.90); MONOCYTES PERCENT AUTO 6.5 % (3.3-12.6); NEUTROPHILS ABSOLUTE AUTO 10.67 K/uL (1.0-7.6); NEUTROPHILS PERCENT AUTO 83.8 % (40.0-78.1); PLATELET COUNT,PLT 271 K/uL (130-375); RED BLOOD CELL COUNT 4.23 M/uL (3.77-5.24); WHITE BLOOD CELL COUNT,WBC 12.7 K/uL (3.2-11.0)
[2023-03-26] MEDS: Meropenem 500 MG in Sodium Chloride 0.9% 100 ML IV SCH ×4 (04:15→21:38)
[2023-03-26 04:34] LABS: A/G RATIO 0.7 (1.2-2.2); ALANINE AMINOTRANSFERASE,ALT 24 U/L (12-78); ALBUMIN 2.5 g/dL (3.4-5.0); ALKALINE PHOSPHATASE 63 U/L (46-116); ASPARTATE AMNIOTRANSFERASE,AST 35 U/L (15-37); BILIRUBIN TOTAL 0.3 mg/dL (0.2-1.0); BLOOD UREA NITROGEN,BUN 8 mg/dL (7-18); CALCIUM 8.4 mg/dL (8.5-10.1); CARBON DIOXIDE,CO2 27 mmol/L (21-32); CHLORIDE,CL 106 mmol/L (100-108); CREATININE 0.8 mg/dL (0.6-1.0); EST CRCL DRUG DOSING (CG) 97.13 mL/min; ESTIMATED GFR 102 mL/min (>60); GLUCOSE RANDOM 108 mg/dL (74-106); PHOSPHORUS 4.9 mg/dL (2.5-4.9); POTASSIUM,K 4.2 mmol/L (3.6-5.2); PROTEIN TOTAL,TP 5.9 g/dL (6.4-8.2); SODIUM,NA 137 mmol/L (140-148)
[2023-03-26 05:12] LABS: ANION GAP 8.2 mmol/L (5.0-14.0)
[2023-03-26] MEDS: Meropenem 500 MG SDV ONE ×2 (06:51→07:50)
[2023-03-26] MEDS ORDERED: Bupivacaine 0.5% 50 ML MDV INJECT ONE ×2 (06:52→07:45)
[2023-03-26] MEDS ORDERED: Lidocaine 1% with EPINEPHrine 1:100,000 50 ML MDV INJECT ONE ×2 (06:55→07:45)
[2023-03-26] MEDS ORDERED: Propofol 200 MG/20 ML SDV ONE ×2 (07:05→07:37)
[2023-03-26] MEDS ORDERED: Ropivacaine 32 ML, dexAMETHasone 8 MG, EPINEPHrine 0.4 MG, Sodium Chloride 0.9% 45.6 ML NERVRT SCH ×4 (07:30)
[2023-03-26] MEDS ORDERED: fentaNYL 50 MCG/ML SDV ONE (07:37)
[2023-03-26] MEDS: HYDROmorphone/Normal Saline 6 MG/30 ML PCA Vial IV PRN ×3 (08:33→20:03)
[2023-03-26] MEDS: Celecoxib 200 MG Cap PO SCH ×2 (08:54→21:38)
[2023-03-26] MEDS: Heparin Sodium 5,000 Units/ML Vial SUBCUT SCH ×2 (08:54→21:37)
[2023-03-26] MEDS: Dextrose 5%-Lactated Ringers 1,000 ML IV SCH ×2 (08:59→21:51)
[2023-03-26] MEDS: SCOPOLAMINE PATCH CHECK TOP SCH (09:00)
[2023-03-26] MEDS ORDERED: Cyanocobalamin (Vitamin B12) 1,000 MCG/ML SDV IM ONE (09:00)
[2023-03-26] MEDS: Amphetamine/Dextroamphetamine Salts 10 MG Cap.ER PO SCH (09:00)
[2023-03-26] MEDS: Amphetamine/Dextroamphetamine Salts 10 MG Tab PO SCH (11:39)
[2023-03-26] MEDS: Pantoprazole 40 MG Tab.CR PO SCH (16:50)
[2023-03-26] MEDS: traZODone 50 MG Tab PO SCH (21:38)
[2023-03-26] MEDS: diphenhydrAMINE 50 MG/ML SDV IVPUSH PRN (21:51)
[2023-03-27] MEDS: Magnesium Sulfate/Water 2 GM in Premix Bag 1 BAG IV SCH (01:51)
[2023-03-27] MEDS: Acetaminophen 500 MG Tab PO SCH ×3 (01:58→17:33)
[2023-03-27] MEDS: Cyclobenzaprine 10 MG Tab PO PRN ×2 (01:58→21:59)
[2023-03-27] MEDS: Meropenem 500 MG in Sodium Chloride 0.9% 100 ML IV SCH ×4 (03:51→23:40)
[2023-03-27] MEDS: HYDROmorphone/Normal Saline 6 MG/30 ML PCA Vial IV PRN (04:30)
[2023-03-27 04:46] LABS: BASOPHILS PERCENT AUTO 0.1 % (0.1-1.3); EOSINOPHILS ABSOLUTE AUTO 0.04 K/uL (0.00-0.40); EOSINOPHILS PERCENT AUTO 0.4 % (0.0-5.4); HEMATOCRIT 32.2 % (34.3-46.0); HEMOGLOBIN 9.8 g/dL (11.2-15.5); IMMATURE GRAN ABSOLUTE AUTO 0.03 K/uL (0.00-0.23); IMMATURE GRAN PERCENT AUTO 0.3 % (0.0-0.7); LYMPHOCYTES ABSOLUTE AUTO 1.14 K/uL (0.8-3.3); LYMPHOCYTES PERCENT AUTO 11.4 % (11.4-47.7); MEAN CORPUSCULAR HEMOGLOBIN 23.6 pg (31.6-35.5); MEAN CORPUSCULAR HGB CONC 30.4 g/dL (31.6-35.5); MEAN CORPUSCULAR VOLUME 77.6 fL (81.4-99.0); MONOCYTES ABSOLUTE AUTO 0.63 K/uL (0.20-0.90); MONOCYTES PERCENT AUTO 6.3 % (3.3-12.6); NEUTROPHILS ABSOLUTE AUTO 8.19 K/uL (1.0-7.6); NEUTROPHILS PERCENT AUTO 81.5 % (40.0-78.1); PLATELET COUNT,PLT 274 K/uL (130-375); RED BLOOD CELL COUNT 4.15 M/uL (3.77-5.24)
[2023-03-27 05:02] LABS: BASOPHILS ABSOLUTE AUTO 0.01 K/uL (0.00-0.10)
[2023-03-27 05:05] LABS: A/G RATIO 0.7 (1.2-2.2); ALANINE AMINOTRANSFERASE,ALT 23 U/L (12-78); ALBUMIN 2.5 g/dL (3.4-5.0); ALKALINE PHOSPHATASE 64 U/L (46-116); ASPARTATE AMNIOTRANSFERASE,AST 31 U/L (15-37); BILIRUBIN TOTAL 0.3 mg/dL (0.2-1.0); BLOOD UREA NITROGEN,BUN 7 mg/dL (7-18); CALCIUM 8.3 mg/dL (8.5-10.1); CARBON DIOXIDE,CO2 30 mmol/L (21-32); CHLORIDE,CL 107 mmol/L (100-108); CREATININE 0.7 mg/dL (0.6-1.0); EST CRCL DRUG DOSING (CG) 111.01 mL/min; ESTIMATED GFR 120 mL/min (>60); GLUCOSE RANDOM 103 mg/dL (74-106); MAGNESIUM 3.3 mg/dL (1.8-2.4); POTASSIUM,K 3.3 mmol/L (3.6-5.2); PROTEIN TOTAL,TP 5.9 g/dL (6.4-8.2); SODIUM,NA 141 mmol/L (140-148)
[2023-03-27 05:08] LABS: ANION GAP 7.3 mmol/L (5.0-14.0)
[2023-03-27] MEDS: hydrOXYzine HCL 100 MG/2 ML SDV IM PRN (06:31)
[2023-03-27] MEDS: Celecoxib 200 MG Cap PO SCH ×2 (08:27→21:54)
[2023-03-27] MEDS: Heparin Sodium 5,000 Units/ML Vial SUBCUT SCH ×2 (08:28→20:36)
[2023-03-27] MEDS: Amphetamine/Dextroamphetamine Salts 10 MG Cap.ER PO SCH (08:28)
[2023-03-27] MEDS: Dextrose 5%-Lactated Ringers 1,000 ML IV SCH (08:29)
[2023-03-27] MEDS ORDERED: oxyCODONE 5 MG Tab PO SCH (09:00)
[2023-03-27] MEDS: Bisacodyl 5 MG Tab PO SCH ×2 (10:10→21:55)
[2023-03-27] MEDS: Docusate Sodium 100 MG Cap PO SCH ×2 (10:10→21:55)
[2023-03-27] MEDS: Amphetamine/Dextroamphetamine Salts 10 MG Tab PO SCH (11:42)
[2023-03-27] MEDS: oxyCODONE 5 MG Tab PO PRN ×2 (12:38→16:24)
[2023-03-27] MEDS: Pantoprazole 40 MG Tab.CR PO SCH (16:15)
[2023-03-27] MEDS: Potassium Phos in 0.9 % NaCl 15 MMOL in Premix Bag 1 BAG IV SCH ×4 (17:32→20:36)
[2023-03-27] MEDS: Sodium Chloride 0.9% 1,000 ML IV SCH (19:36)
[2023-03-27] MEDS: HYDROmorphone 2 MG Tab PO PRN (19:36)
[2023-03-27] MEDS: traZODone 50 MG Tab PO SCH (21:55)
[2023-03-28] MEDS: HYDROmorphone 2 MG Tab PO PRN ×3 (00:19→09:09)
[2023-03-28] MEDS: Potassium Phos in 0.9 % NaCl 15 MMOL in Premix Bag 1 BAG IV SCH ×2 (00:19)
[2023-03-28] MEDS: Acetaminophen 500 MG Tab PO SCH (02:48)
[2023-03-28] MEDS: Meropenem 500 MG in Sodium Chloride 0.9% 100 ML IV SCH ×2 (03:41→09:01)
[2023-03-28] MEDS: Sodium Chloride 0.9% 1,000 ML IV SCH (06:40)
[2023-03-28] MEDS: Docusate Sodium 100 MG Cap PO SCH (08:58)
[2023-03-28] MEDS: Amphetamine/Dextroamphetamine Salts 10 MG Cap.ER PO SCH (08:58)
[2023-03-28] MEDS: Bisacodyl 5 MG Tab PO SCH (08:58)
[2023-03-28] MEDS: Heparin Sodium 5,000 Units/ML Vial SUBCUT SCH ×2 (08:59→09:02)
[2023-03-28] MEDS: Celecoxib 200 MG Cap PO SCH (09:00)
[2023-03-28] MEDS: Cyclobenzaprine 10 MG Tab PO PRN (09:08)
== END 2023-03-28 11:45 | disposition home or self-care (01) | DRG 331 ==
LOC: JP.SDS 06:56 → JP.MS 11:45
PROVIDERS: ADMIT Surgery; ATTEND Surgery
PROC: 0DP58DZ Removal of Intraluminal Device from Esophagus, Via Natural or Artificial Opening Endoscopic (ICD-10-PCS; principal; 2023-03-24)
PROC: 0DB80ZZ Excision of Small Intestine, Open Approach (ICD-10-PCS; 2023-03-24)
PROC: 0DN80ZZ Release Small Intestine, Open Approach (ICD-10-PCS; 2023-03-24)
PROC: 3E0M05Z Introduction of Adhesion Barrier into Peritoneal Cavity, Open Approach (ICD-10-PCS; 2023-03-24)
PROC: 0D768ZZ Dilation of Stomach, Via Natural or Artificial Opening Endoscopic (ICD-10-PCS; 2023-03-24)
PROC: 0D7A8ZZ Dilation of Jejunum, Via Natural or Artificial Opening Endoscopic (ICD-10-PCS; 2023-03-24)
PROC: 0WQF0ZZ Repair Abdominal Wall, Open Approach (ICD-10-PCS; 2023-03-26)
DX: K95.89 Other complications of other bariatric procedure (principal); F90.9 Attention-deficit hyperactivity disorder, unspecified type; E11.9 Type 2 diabetes mellitus without complications; J98.2 Interstitial emphysema; K63.89 Other specified diseases of intestine; F32.9 Major depressive disorder, single episode, unspecified; F41.8 Other specified anxiety disorders; E66.9 Obesity, unspecified; Z68.23 Body mass index [BMI] 23.0-23.9, adult; Z87.891 Personal history of nicotine dependence; Z88.8 Allergy status to other drugs, medicaments and biological substances
CPT/HCPCS: 36415; 74240; 74240-26; 80053; 81025; 82728; 83735; 83880; 84100; 85025; 85027; 88307; A9270-GY; C9113; J0131; J0171; J1100; J1170; J1200; J1644; J2020; J2185; J2250; J2405; J2704; J2795; J3010; J3410; J3411; J3420; J3475; J3490; J7030; J7121

== ENCOUNTER 2023-04-21 06:30 | Day surgery (SDC) | payer MEDICAID ==
[2023-04-21] MEDS ORDERED: Cyanocobalamin (Vitamin B12) 1,000 MCG/ML SDV IM ONE (07:00)
[2023-04-21] MEDS ORDERED: Lactated Ringers 1,000 ML IV SCH (07:00)
[2023-04-21] MEDS ORDERED: Propofol 200 MG/20 ML SDV ONE (07:06)
[2023-04-21] MEDS ORDERED: fentaNYL 50 MCG/ML SDV ONE (07:07)
[2023-04-21] MEDS ORDERED: Midazolam 1 MG/ML 2 ML SDV ONE (07:07)
[2023-04-21] MEDS ORDERED: Glycopyrrolate 0.2 MG/ML 2 ML SDV IVPUSH ONE (07:30)
[2023-04-21] MEDS ORDERED: Scopolamine 1.5 MG Transdermal Patch TOP ONE (07:30)
[2023-04-21] MEDS ORDERED: Dexamethasone 4 MG/ML SDV ONE (07:44)
[2023-04-21] MEDS ORDERED: MVI, Adult with Vitamin K 10 ML, Thiamine 200 MG, Zinc/Copper/Manganese/Selenium 1 ML i... IV ONE ×4 (08:00)
== END 2023-04-21 10:15 | disposition home or self-care (01) ==
LOC: JP.SDS 06:30
PROVIDERS: ATTEND Surgery
DX: K22.2 Esophageal obstruction (principal); K56.699 Other intestinal obstruction unspecified as to partial versus complete obstruction; F90.9 Attention-deficit hyperactivity disorder, unspecified type; E66.9 Obesity, unspecified; E11.9 Type 2 diabetes mellitus without complications; I25.2 Old myocardial infarction; Z79.899 Other long term (current) drug therapy; Z68.21 Body mass index [BMI] 21.0-21.9, adult
CPT/HCPCS: 43245; 76000; 81025; A9270; C1726; J1100; J2250; J2704; J3010; J3411; J3420; J3490; J7120

== ENCOUNTER 2023-08-04 09:05 | Day surgery (SDC) | payer MEDICAID ==
[2023-08-04] MEDS ORDERED: Lactated Ringers 1,000 ML IV ONE (09:30)
[2023-08-04] MEDS ORDERED: Cyanocobalamin (Vitamin B12) 1,000 MCG/ML SDV IM ONE (09:30)
[2023-08-04] MEDS ORDERED: Scopolamine 1.5 MG Transdermal Patch TOP ONE (10:15)
[2023-08-04] MEDS ORDERED: MVI, Adult with Vitamin K 10 ML, Thiamine 200 MG, Zinc/Copper/Manganese/Selenium 1 ML i... IV ONE ×4 (10:30)
[2023-08-04] MEDS ORDERED: fentaNYL 100 MCG/2 ML SDV ONE ×2 (10:36→10:50)
[2023-08-04] MEDS ORDERED: Midazolam 1 MG/ML 2 ML SDV ONE ×2 (10:36→10:50)
[2023-08-04] MEDS ORDERED: Propofol 200 MG/20 ML SDV ONE (10:36)
== END 2023-08-04 12:29 | disposition home or self-care (01) ==
LOC: JP.SDS 09:05
PROVIDERS: ATTEND Student in an Organized Health Care Education/Training Program
DX: K91.89 Other postprocedural complications and disorders of digestive system (principal); K31.89 Other diseases of stomach and duodenum; K29.50 Unspecified chronic gastritis without bleeding; F41.9 Anxiety disorder, unspecified; E11.9 Type 2 diabetes mellitus without complications; Z98.84 Bariatric surgery status; Z98.890 Other specified postprocedural states; Z88.0 Allergy status to penicillin; Z88.8 Allergy status to other drugs, medicaments and biological substances
CPT/HCPCS: 76000; 81025; 88305; A9270-GY; J2250; J2704; J3010; J3411; J3420; J3490; J7120